=== PATIENT | male | born 1965 | race Hispanic/Latino ===

== ENCOUNTER 2021-03-23 11:22 | Emergency (ER) | payer MEDICARE ==
[2021-03-23 12:16] LABS: Hematocrit 44.6 % (35.5-45.6); Hemoglobin 14.8 gm/dl (11.8-15.2); Mean Corpuscular HGB Conc 33 % (32-34); Mean Corpuscular Volume 92 fl (84-94); Platelet Count 162 K/mm3 (140-440); Red Blood Count 4.87 M/mm3 (3.65-5.03); Red Cell Distribution Width 14.2 % (13.2-15.2)
--- NOTE | 2021-03-23 12:18 | Emergency Department Report ---
HPI - HPI HPI: Room 12 The patient is a 55-year-old male present with a chief complaint of suicidal ideation. Patient states he has history of depression and is constantly suicidal. Patient states he was recently released from [facility] but told them that he will return. The patient states he did not fill his psychiatric medication prescriptions because he says he would have been taking them all at once in an attempt to kill himself. Patient denies any attempts at harming himself since being released from [facility]. The patient also states he broke his left heel 10 weeks ago while in [place] but has not yet had a chance to follow-up with an orthopedic surgeon. <GIACOMO CANADA - Last Filed: 03/23/21 14:56> <ARIANNE ANGEL - Last Filed: 03/24/21 08:40> - General Chief Complaint: Psych Time Seen by Provider: 03/23/21 12:02 ED Past Medical Hx - Past Medical History Hx Psychiatric Treatment: Yes (Depression) - Surgical History Additional Surgical History: Bilateral lower extremity fractures, back surgery x2, right upper extremity surgery - Family History Family history: no significant - Social History Smoking Status: Current Every Day Smoker (Vape) Substance Use Type: Alcohol (Rarely), Methamphetamines (No IVDA) <GIACOMO CANADA - Last Filed: 03/23/21 14:56> ED Review of Systems ROS: Stated complaint: HEEL /SUICIDAL Other details as noted in HPI Constitutional: no symptoms reported Eyes: denies: eye pain ENT: denies: throat pain Respiratory: no symptoms reported Cardiovascular: denies: chest pain Endocrine: no symptoms reported Gastrointestinal: denies: abdominal pain Genitourinary: denies: dysuria Musculoskeletal: denies: back pain Neurological: denies: headache Psychiatric: depression, suicidal thoughts <GIACOMO CANADA - Last Filed: 03/23/21 14:56> ROS: Stated complaint: HEEL /SUICIDAL Other details as noted in HPI <ARIANNE ANGEL - Last Filed: 03/24/21 08:40> Physical Exam - Physical Exam Vital Signs: Vital Signs 03/23/21 11:28 Temperature 98.8 F Pulse Rate 91 H Respiratory 16 Rate Blood Pressure 135/88 [Right] O2 Sat by Pulse 99 Oximetry Physical Exam: GENERAL: The patient is well-developed well-nourished male sitting in chair not appearing to be in acute distress. [] HEENT: Normocephalic. Atraumatic. Extraocular motions are intact. Patient has moist mucous membranes. NECK: Supple. Trachea midline CHEST/LUNGS: Clear to auscultation. There is no respiratory distress noted. HEART/CARDIOVASCULAR: Regular. There is no tachycardia. There is no gallop rub or murmur. ABDOMEN: Abdomen is soft, nontender. Patient has normal bowel sounds. There is no abdominal distention. SKIN: There is no rash. There is no edema. There is no diaphoresis. NEURO: The patient is awake, alert, and oriented. The patient is cooperative. The patient has no focal neurologic deficits. The patient has normal speech MUSCULOSKELETAL: There is no evidence of acute injury. <GIACOMO CANADA - Last Filed: 03/23/21 14:56> - Physical Exam Vital Signs: Vital Signs 03/23/21 03/23/21 03/23/21 11:28 12:30 15:34 Temperature 98.8 F 98.4 F Pulse Rate 91 H 86 Respiratory 16 18 Rate Blood Pressure 135/88 135/79 [Right] O2 Sat by Pulse 99 96 Oximetry 03/23/21 03/23/21 03/24/21 19:31 20:09 05:59 Temperature 98.1 F 97.6 F Pulse Rate 76 77 Respiratory 18 18 16 Rate Blood Pressure 108/60 96/55 [Right] O2 Sat by Pulse 97 99 98 Oximetry 03/24/21 07:55 Temperature 98.3 F Pulse Rate 88 Respiratory 16 Rate Blood Pressure 110/67 [Right] O2 Sat by Pulse 99 Oximetry <ARIANNE ANGEL - Last Filed: 03/24/21 08:40> ED Course Vital Signs 03/23/21 11:28 Temperature 98.8 F Pulse Rate 91 H Respiratory 16 Rate Blood Pressure 135/88 [Right] O2 Sat by Pulse 99 Oximetry <GIACOMO CANADA - Last Filed: 03/23/21 14:56> Vital Signs 03/23/21 03/23/21 03/23/21 11:28 12:30 15:34 Temperature 98.8 F 98.4 F Pulse Rate 91 H 86 Respiratory 16 18 Rate Blood Pressure 135/88 135/79 [Right] O2 Sat by Pulse 99 96 Oximetry 0803/23/21 03/24/21 19:31 20:09 05:59 Temperature 98.1 F 97.6 F Pulse Rate 76 77 Respiratory 18 18 16 Rate Blood Pressure 108/60 96/55 [Right] O2 Sat by Pulse 97 99 98 Oximetry 03/24/21 07:55 Temperature 98.3 F Pulse Rate 88 Respiratory 16 Rate Blood Pressure 110/67 [Right] O2 Sat by Pulse 99 Oximetry - Reevaluation(s) Reevaluation #1: 03/24/21 08:39 Patient is medically cleared for psychiatric placement. Patient has been accepted at [facility]. Patient will be transferred for further management of mental health crisis. <ARIANNE ANGEL - Last Filed: 03/24/21 08:40> ED Medical Decision Making - Lab Data Result diagrams: 03/23/21 11:55 03/23/21 11:55 - Radiology Data Radiology results: report reviewed (Left foot x-ray), image reviewed (Left foot x-ray) interpreted by me: Left foot x-ray-no foreign body, no dislocation. [facility] [address] [place] [address] XRay Report Signed Patient: JOSE A SOTO MR#: [id number] 9 : 1965 Acct:[id number] Age/Sex: 55 / M ADM Date: 03/23/21 Loc: ED Attending Dr: Ordering Physician: GIACOMO CANADA MD Date of Service: 03/23/21 Procedure(s): XR foot 3+V LT Accession Number(s): [id number] cc: GIACOMO CANADA MD Fluoro Time In Minutes: LEFT FOOT 3 VIEWS INDICATION: Reported "heel" fracture 10 wks ago. COMPARISON: No relevant prior imaging study available. FINDINGS: There is a subacute, mildly comminuted intra-articular calcaneus fracture. CT would be useful to better characterize this. There appears to be interval healing. No additional fractures are seen. No significant degenerative changes. IMPRESSION: 1. Calcaneal fracture. CT would be useful to better characterize this. Signer Name: Fabian Blair MD Signed: 03/23/2021 12:54 PM Workstation Name: [id number] Transcribed By: KWADWO Dictated By: Fabian Blair MD Electronically Authenticated By: Fabian Blair MD Signed Date/Time: 03/23/21 1254 DD/ 1253 TD/TT: Print Cancel - Differential Diagnosis Suicidal ideation, depression <GIACOMO CANADA - Last Filed: 03/23/21 14:56> - Lab Data Result diagrams: 03/23/21 11:55 03/23/21 11:55 Lab Results 03/23/21 03/23/21 03/23/21 Range/Units 11:33 11:55 11:55 WBC (4.5-11.0) K/mm3 RBC (3.65-5.03) M/mm3 Hgb (11.8-15.2) gm/dl Hct (35.5-45.6) % MCV (84-94) fl MCH (28-32) pg MCHC (32-34) % RDW (13.2-15.2) % Plt Count (140-440) K/mm3 Add Manual Diff Total Counted Seg Neuts % (Manual) (40.0-70.0) % Lymphocytes % (Manual) (13.4-35.0) % Monocytes % (Manual) (0.0-7.3) % Nucleated RBC % Seg Neutrophils # Man (1.8-7.7) K/mm3 Band Neutrophils # K/mm3 Lymphocytes # (Manual) (1.2-5.4) K/mm3 Abs React Lymphs (Man) K/mm3 Monocytes # (Manual) (0.0-0.8) K/mm3 Eosinophils # (Manual) (0.0-0.4) K/mm3 Basophils # (Manual) (0.0-0.1) K/mm3 Metamyelocytes # K/mm3 Myelocytes # K/mm3 Promyelocytes # K/mm3 Blast Cells # K/mm3 WBC Morphology Hypersegmented Neuts Hyposegmented Neuts Hypogranular Neuts Smudge Cells Toxic Granulation Toxic Vacuolation Dohle Bodies Pelger-Huet Anomaly Damián Rods Platelet Estimate Clumped Platelets Plt Clumps, EDTA Large Platelets Giant Platelets Platelet Satelliting Plt Morphology Comment RBC Morphology Dimorphic RBCs Polychromasia Hypochromasia Poikilocytosis Anisocytosis Microcytosis Macrocytosis Spherocytes Pappenheimer Bodies Sickle Cells Target Cells Tear Drop Cells Ovalocytes Helmet Cells Ru[place] Bodies Surry Rings True Cells Bite Cells Crenated Cell Elliptocytes Acanthocytes (Spur) Rouleaux Hemoglobin C Crystals Schistocytes Malaria parasites Car Bodies Hem Pathologist Commnt Sodium (137-145) mmol/L Potassium (3.6-5.0) mmol/L Chloride (98-107) mmol/L Carbon Dioxide (22-30) mmol/L Anion Gap mmol/L BUN (9-20) mg/dL Creatinine (0.8-1.3) mg/dL Estimated GFR ml/min BUN/Creatinine Ratio % Glucose (75-100) mg/dL Calcium (8.4-10.2) mg/dL Urine Color (Yellow) Urine Turbidity (Clear) Urine pH (5.0-7.0) Ur Specific [place] (1.003-1.030) Urine Protein (Negative) mg/dL Urine Glucose (UA) (Negative) mg/dL Urine Ketones (Negative) mg/dL Urine Blood (Negative) Urine Nitrite (Negative) Urine Bilirubin (Negative) Urine Urobilinogen (<2.0) mg/dL Ur Leukocyte Esterase (Negative) Urine WBC (Auto) (0.0-6.0) /HPF Urine RBC (Auto) (0.0-6.0) /HPF U Epithel Cells (Auto) (0-13.0) /HPF Urine Mucus /HPF Salicylates < 0.3 L (2.8-20.0) mg/dL Urine Opiates Screen Negative Urine Methadone Screen Negative Acetaminophen 5.0 L (10.0-30.0) ug/mL Ur Barbiturates Screen Negative Ur Phencyclidine Scrn Negative Ur Amphetamines Screen Negative U Benzodiazepines Scrn Negative Urine Cocaine Screen Negative U Marijuana (THC) Screen Negative Drugs of Abuse Note Disclamer Plasma/Serum Alcohol (0-0.07) % 03/23/21 03/23/21 03/23/21 Range/Units 11:55 11:55 11:55 WBC 7.8 (4.5-11.0) K/mm3 RBC 4.87 (3.65-5.03) M/mm3 Hgb 14.8 (11.8-15.2) gm/dl Hct 44.6 (35.5-45.6) % MCV 92 (84-94) fl MCH 31 (28-32) pg MCHC 33 (32-34) % RDW 14.2 (13.2-15.2) % Plt Count 162 (140-440) K/mm3 Add Manual Diff Complete Total Counted 100 Seg Neuts % (Manual) 64.0 (40.0-70.0) % Lymphocytes % (Manual) 23.0 (13.4-35.0) % Monocytes % (Manual) 13.0 H (0.0-7.3) % Nucleated RBC % Not Reportable Seg Neutrophils # Man 5.0 (1.8-7.7) K/mm3 Band Neutrophils # 0.0 K/mm3 Lymphocytes # (Manual) 1.8 (1.2-5.4) K/mm3 Abs React Lymphs (Man) 0.0 K/mm3 Monocytes # (Manual) 1.0 H (0.0-0.8) K/mm3 Eosinophils # (Manual) 0.0 (0.0-0.4) K/mm3 Basophils # (Manual) 0.0 (0.0-0.1) K/mm3 Metamyelocytes # 0.0 K/mm3 Myelocytes # 0.0 K/mm3 Promyelocytes # 0.0 K/mm3 Blast Cells # 0.0 K/mm3 WBC Morphology Not Reportable Hypersegmented Neuts Not Reportable Hyposegmented Neuts Not Reportable Hypogranular Neuts Not Reportable Smudge Cells Not Reportable Toxic Granulation Not Reportable Toxic Vacuolation Not Reportable Dohle Bodies Not Reportable Pelger-Huet Anomaly Not Reportable Damián Rods Not Reportable Platelet Estimate Not Reportable Clumped Platelets Not Reportable Plt Clumps, EDTA Not Reportable Large Platelets Not Reportable Giant Platelets Not Reportable Platelet Satelliting Not Reportable Plt Morphology Comment Not Reportable RBC Morphology Normal Dimorphic RBCs Not Reportable Polychromasia Not Reportable Hypochromasia Not Reportable Poikilocytosis Not Reportable Anisocytosis Not Reportable Microcytosis Not Reportable Macrocytosis Not Reportable Spherocytes Not Reportable Pappenheimer Bodies Not Reportable Sickle Cells Not Reportable Target Cells Not Reportable Tear Drop Cells Not Reportable Ovalocytes Not Reportable Helmet Cells Not Reportable Ru[place] Bodies Not Reportable Surry Rings Not Reportable Grants Cells Not Reportable Bite Cells Not Reportable Crenated Cell Not Reportable Elliptocytes Not Reportable Acanthocytes (Spur) Not Reportable Rouleaux Not Reportable Hemoglobin C Crystals Not Reportable Schistocytes Not Reportable Malaria parasites Not Reportable Car Bodies Not Reportable Hem Pathologist Commnt No Sodium 142 (137-145) mmol/L Potassium 4.3 (3.6-5.0) mmol/L Chloride 104.1 (98-107) mmol/L Carbon Dioxide 28 (22-30) mmol/L Anion Gap 14 mmol/L BUN 19 (9-20) mg/dL Creatinine 0.9 (0.8-1.3) mg/dL Estimated GFR > 60 ml/min BUN/Creatinine Ratio 21 % Glucose 87 (75-100) mg/dL Calcium 9.6 (8.4-10.2) mg/dL Urine Color (Yellow) Urine Turbidity (Clear) Urine pH (5.0-7.0) Ur Specific [place] (1.003-1.030) Urine Protein (Negative) mg/dL Urine Glucose (UA) (Negative) mg/dL Urine Ketones (Negative) mg/dL Urine Blood (Negative) Urine Nitrite (Negative) Urine Bilirubin (Negative) Urine Urobilinogen (<2.0) mg/dL Ur Leukocyte Esterase (Negative) Urine WBC (Auto) (0.0-6.0) /HPF Urine RBC (Auto) (0.0-6.0) /HPF U Epithel Cells (Auto) (0-13.0) /HPF Urine Mucus /HPF Salicylates (2.8-20.0) mg/dL Urine Opiates Screen Urine Methadone Screen Acetaminophen (10.0-30.0) ug/mL Ur Barbiturates Screen Ur Phencyclidine Scrn Ur Amphetamines Screen U Benzodiazepines Scrn Urine Cocaine Screen U Marijuana (THC) Screen Drugs of Abuse Note Plasma/Serum Alcohol < 0.01 (0-0.07) % 03/24/21 Range/Units Unknown WBC (4.5-11.0) K/mm3 RBC (3.65-5.03) M/mm3 Hgb (11.8-15.2) gm/dl Hct (35.5-45.6) % MCV (84-94) fl MCH (28-32) pg MCHC (32-34) % RDW (13.2-15.2) % Plt Count (140-440) K/mm3 Add Manual Diff Total Counted Seg Neuts % (Manual) (40.0-70.0) % Lymphocytes % (Manual) (13.4-35.0) % Monocytes % (Manual) (0.0-7.3) % Nucleated RBC % Seg Neutrophils # Man (1.8-7.7) K/mm3 Band Neutrophils # K/mm3 Lymphocytes # (Manual) (1.2-5.4) K/mm3 Abs React Lymphs (Man) K/mm3 Monocytes # (Manual) (0.0-0.8) K/mm3 Eosinophils # (Manual) (0.0-0.4) K/mm3 Basophils # (Manual) (0.0-0.1) K/mm3 Metamyelocytes # K/mm3 Myelocytes # K/mm3 Promyelocytes # K/mm3 Blast Cells # K/mm3 WBC Morphology Hypersegmented Neuts Hyposegmented Neuts Hypogranular Neuts Smudge Cells Toxic Granulation Toxic Vacuolation Dohle Bodies Pelger-Huet Anomaly Damián Rods Platelet Estimate Clumped Platelets Plt Clumps, EDTA Large Platelets Giant Platelets Platelet Satelliting Plt Morphology Comment RBC Morphology Dimorphic RBCs Polychromasia Hypochromasia Poikilocytosis Anisocytosis Microcytosis Macrocytosis Spherocytes Pappenheimer Bodies Sickle Cells Target Cells Tear Drop Cells Ovalocytes Helmet Cells Ruiz-[place] Bodies Surry Rings Grants Cells Bite Cells Crenated Cell Elliptocytes Acanthocytes (Spur) Rouleaux Hemoglobin C Crystals Schistocytes Malaria parasites Acr Bodies Hem Pathologist Commnt Sodium (137-145) mmol/L Potassium (3.6-5.0) mmol/L Chloride (98-107) mmol/L Carbon Dioxide (22-30) mmol/L Anion Gap mmol/L BUN (9-20) mg/dL Creatinine (0.8-1.3) mg/dL Estimated GFR ml/min BUN/Creatinine Ratio % Glucose (75-100) mg/dL Calcium (8.4-10.2) mg/dL Urine Color Yellow (Yellow) Urine Turbidity Clear (Clear) Urine pH 5.0 (5.0-7.0) Ur Specific [place] 1.017 (1.003-1.030) Urine Protein <15 mg/dl (Negative) mg/dL Urine Glucose (UA) Neg (Negative) mg/dL Urine Ketones Neg (Negative) mg/dL Urine Blood Neg (Negative) Urine Nitrite Neg (Negative) Urine Bilirubin Neg (Negative) Urine Urobilinogen < 2.0 (<2.0) mg/dL Ur Leukocyte Esterase Neg (Negative) Urine WBC (Auto) < 1.0 (0.0-6.0) /HPF Urine RBC (Auto) < 1.0 (0.0-6.0) /HPF U Epithel Cells (Auto) 1.0 (0-13.0) /HPF Urine Mucus Few /HPF Salicylates (2.8-20.0) mg/dL Urine Opiates Screen Urine Methadone Screen Acetaminophen (10.0-30.0) ug/mL Ur Barbiturates Screen Ur Phencyclidine Scrn Ur Amphetamines Screen U Benzodiazepines Scrn Urine Cocaine Screen U Marijuana (THC) Screen Drugs of Abuse Note Plasma/Serum Alcohol (0-0.07) % <ARIANNE ANGEL - Last Filed: 03/24/21 08:40> Critical care attestation.: If time is entered above; I have spent that time in minutes in the direct care of this critically ill patient, excluding procedure time. <GIACOMO CANADA - Last Filed: 03/23/21 14:56> Critical care attestation.: If time is entered above; I have spent that time in minutes in the direct care of this critically ill patient, excluding procedure time. <ARIANNE ANGEL - Last Filed: 03/24/21 08:40> ED Disposition <GIACOMO CANADA - Last Filed: 03/23/21 14:56> Is pt being admited?: No Does the pt Need Aspirin: No Time of Disposition: 08:40 <ARIANNE ANGEL - Last Filed: 03/24/21 08:40> Clinical Impression: Suicidal ideation [facility] Condition: Stable
[2021-03-23 12:34] LABS: BUN/Creatinine Ratio 21; Blood Urea Nitrogen 19 mg/dL (9-20); Calcium 9.6 mg/dL (8.4-10.2); Hemolysis Index 8
--- NOTE | 2021-03-23 12:59 | XRay Report ---
LEFT FOOT 3 VIEWS INDICATION: Reported "heel" fracture 10 wks ago. COMPARISON: No relevant prior imaging study available. FINDINGS: There is a subacute, mildly comminuted intra-articular calcaneus fracture. CT would be useful to bett er characterize this. There appears to be interval healing. No additional fractures are seen. No sign ificant degenerative changes. IMPRESSION: 1. Calcaneal fracture. CT would be useful to better characterize this. Signer Name: Fabian Blair MD Signed: 03/23/2021 12:54 PM Workstation Name: [id number]
[2021-03-23 13:37] LABS: Amphetamine Screen,Urine Negative; Benzodiazepines Screen,Urine Negative; Cannabinoid Screen,Urine Negative; Cocaine Screen,Urine Negative; Methadone Screen,Urine Negative; Opiate Screen,Urine Negative
[2021-03-23 16:09] LABS: RBC Morphology Normal; Total Cells Counted 100
[2021-03-23] MEDS ORDERED: buPROPion XL 150 MG TAB PO ONE (23:34)
[2021-03-23] MEDS ORDERED: METOCLOPRAMIDE 10 MG/2 ML INJ IM ONE (23:35)
[2021-03-23] MEDS ORDERED: QUEtiapine 100 MG TAB PO ONE (23:35)
[2021-03-23] MEDS ORDERED: hydrOXYzine PAMOATE 25 MG CAP PO ONE (23:36)
[2021-03-23] MEDS ORDERED: MIRTAZAPINE 15 MG TAB PO ONE (23:37)
[2021-03-24 07:41] LABS: Bilirubin,Urine NEG (Negative); Blood,Urine NEG (Negative); Color,Urine Yellow (Yellow); Mucus,Urine FEW /HPF; Protein,Urine <15 mg/dL mg/dL (Negative); RBC,Urine < 1.0 /HPF (0.0-6.0); Urobilinogen,Urine < 2.0 mg/dL (<2.0)
[2021-03-24 07:48] LABS: WBC,Urine < 1.0 /HPF (0.0-6.0)
--- NOTE | 2021-03-24 11:02 | Consultation ---
History of Present Illness - Reason for Consult Consult date: 03/24/21 Reason for consult: Mental health eval - History of Present Psychiatric Illness Per ED Note: The patient is a 55-year-old male present with a chief complaint of suicidal ideation. Patient states he has history of depression and is constantly suicidal. Patient states he was recently released from [facility] but told them that he will return. The patient states he did not fill his psychiatric medication prescriptions because he says he would have been taking them all at once in an attempt to kill himself. Patient denies any attempts at harming himself since being released from [facility]. The patient also states he broke his left heel 10 weeks ago while in [place] but has not yet had a chance to follow-up with an orthopedic surgeon. Shane Harris is a 55 year old male with a history of Depression, multiple suicidal attempts and multiple inpatient psychiatric admissions who presents to the ED with suicidal ideation. In my interview with the patient, he admits being very depressed. The patient reports that he was recently discharged from [facility] about two days ago and was referred to [facility] however, he reports constantly having suicidal thoughts with a plan to overdose on pills " I don't want to be alive." He denies any homicidal thoughts and denies hallucinations. PAST PSYCHIATRIC HISTORY: Diagnoses: Depression Suicide attempts or Self-harm behavior: Yes X10 Prior psychiatric hospitalizations: Multiple Substance Abuse history: Methamphetamines Previous psychiatric medications tried: Abilify, Zoloft, and Wellbutrin Outpatient treatment: denies PAST MEDICAL HISTORY: None reported or document Family Psychiatric History: None reported or documented SOCIAL HISTORY Marital Status: Single Living Arrangements: Homeless Employment Status: Unemployed Access to guns/weapons: denies Education: GED History of Abuse:Denies Legal History: Denies REVIEW OF SYSTEMS Constitutional: Negative for weight loss ENT: Negative for stridor Respiratory: Negative for cough or hemoptysis All other systems reviewed and are negative MENTAL STATUS EXAMINATION General Appearance and Behavior: Age appropriate, good hygiene, wearing appropriate clothes, calm and cooperative polite with questioning. Cooperation: engaged Psychomotor Behavior: Psychomotor normal Mood:Depressed Affect and affective range: congruent with stated mood Thought Process: goal directed Thought Content: Suicidal Speech: Normal volume, Regular rate and rhythm, Suicidal Ideation: Yes Homicidal Ideation: Denies Hallucinations: Denies Delusions: None elicited Impulse Control: Unimpaired Insight and Judgment: Limited Memory: Abnormal Attention: attentive Orientation: alert and oriented Assessment and Plan (1) Major depressive disorder, recurrent,severe-F33.2 Current Visit: Yes Status: Acute Treatment Plan Continue 1013 Please continue home medications. The patient to comply with previously prescribed medications Risks, benefits and alternatives of medications discussed with the patient, questions answered and consent obtained from patient. PSYCHOTHERAPY: Supportive psychotherapy provided MEDICAL: Per primary team DELIRIUM PRECAUTIONS: Please re-orient patient frequently, keep lights on during the day, and minimize benzodiazepines and opiates as these medications could worsen patient's confusion. SECOND CUTTER: Defer to primary DISPOSITION: Recommend acute inpatient psychiatric hospitalization at this time. FOLLOW-UP: Will follow Thank you for the consult. Please contact with any questions and/or concerns. Medications and Allergies Allergies Allergy/AdvReac Type Severity Reaction Status Date / Time No Known Allergies Allergy Unverified 03/23/21 11:33 Home Medications Medication Instructions Recorded Confirmed Last Taken Type QUEtiapine [SEROquel] 100 mg PO QHS 03/23/21 03/23/21 Unknown History buPROPion XL [Wellbutrin XL] 150 mg PO DAILY 03/23/21 03/23/21 Unknown History Mental Status Exam - Vital signs Last Vital Signs Temp 98.3 F 03/24/21 07:55 Pulse 88 03/24/21 07:55 Resp 16 03/24/21 07:55 BP 110/67 03/24/21 07:55 Pulse Ox 99 03/24/21 07:55 Results Result Diagrams: 03/23/21 11:55 03/23/21 11:55 Abnormal lab results 03/23/21 03/23/21 03/23/21 Range/Units 11:55 11:55 11:55 Monocytes % (Manual) 13.0 H (0.0-7.3) % Monocytes # (Manual) 1.0 H (0.0-0.8) K/mm3 Salicylates < 0.3 L (2.8-20.0) mg/dL Acetaminophen 5.0 L (10.0-30.0) ug/mL All other labs normal.
[2021-03-24] MEDS: buPROPion XL 150 MG TAB PO SCH (12:40)
[2021-03-24] MEDS ORDERED: QUEtiapine 100 MG TAB PO SCH (22:00)
[2021-03-25 08:16] VITALS: BP 115/75
--- NOTE | 2021-03-25 09:25 | Progress Note ---
Subjective - Reason for Consult Consult date: 03/25/21 Reason for consult: sucidal ideation - Chief Complaint Chief complaint: The patient was seen resting quietly, he reports feeling better. He reports sleep and appetite as good. The patient denies any current suicidal/homicidal thoughts and denies hallucinations. REVIEW OF SYSTEMS Constitutional: Negative for weight loss ENT: Negative for stridor Respiratory: Negative for cough or hemoptysis All other systems reviewed and are negative MENTAL STATUS EXAMINATION General Appearance and Behavior: Age appropriate, good hygiene, wearing appropriate clothes, calm and cooperative polite with questioning. Cooperation: engaged Psychomotor Behavior: Psychomotor normal Mood:" good" Affect and affective range: congruent with stated mood Thought Process: goal directed Thought Content: Not Suicidal Speech: Normal volume, Regular rate and rhythm, Suicidal Ideation: Denies Homicidal Ideation: Denies Hallucinations: Denies Delusions: None elicited Impulse Control: Unimpaired Insight and Judgment: Limited Memory: Abnormal Attention: attentive Orientation: alert and oriented Assessment and Plan (1) Major depressive disorder, recurrent,severe-F33.2 Current Visit: Yes Status: Acute Treatment Plan DC 1013 Please continue home medications. The patient to comply with previously prescribed medications Risks, benefits and alternatives of medications discussed with the patient, questions answered and consent obtained from patient. PSYCHOTHERAPY: Supportive psychotherapy provided MEDICAL: Per primary team DELIRIUM PRECAUTIONS: Please re-orient patient frequently, keep lights on during the day, and minimize benzodiazepines and opiates as these medications could worsen patient's confusion. 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 The patient understands that if suicidal/homicidal ideation or any endangering thoughts/behaviors arise, he should seek emergent assistance including but not limited to crisis hotline and emergency room. Follow up with outpatient psychiatrist with 7- 14 days of discharge. FOLLOW-UP: Will sign off Please contact with any questions and/or concerns. Mental Status Exam - Vital signs Last Vital Signs Temp 98.6 F 03/25/21 08:15 Pulse 88 03/25/21 08:15 Resp 20 03/25/21 08:15 BP 115/75 03/25/21 08:15 Pulse Ox 99 03/25/21 08:16
[2021-03-25] MEDS: buPROPion XL 150 MG TAB PO SCH (09:37)
--- NOTE | 2021-03-25 11:18 | Emergency Department Report ---
Blank Doc - Documentation Documentation: S: 55-year-old male presenting with suicidal ideation after recent discharge f rom O: No complaints. Vital signs reviewed Vital Signs 03/23/21 03/23/21 03/23/21 11:28 12:30 15:34 Temperature 98.8 F 98.4 F Pulse Rate 91 H 86 Respiratory 16 18 Rate Blood Pressure 135/88 135/79 [Right] O2 Sat by Pulse 99 96 Oximetry 03/23/21 03/23/21 03/24/21 19:31 20:09 05:59 Temperature 98.1 F 97.6 F Pulse Rate 76 77 Respiratory 18 18 16 Rate Blood Pressure 108/60 96/55 [Right] O2 Sat by Pulse 97 99 98 Oximetry 03/24/21 03/24/21 03/25/21 07:55 19:00 08:15 Temperature 98.3 F 98.3 F 98.6 F Pulse Rate 88 82 88 Respiratory 16 18 20 Rate Blood Pressure 110/67 122/78 115/75 [Right] O2 Sat by Pulse 99 100 99 Oximetry 03/25/21 08:16 Temperature Pulse Rate Respiratory Rate Blood Pressure [Right] O2 Sat by Pulse 99 Oximetry Assessment: Covid positive patient, suicidal received psychiatric assessment. Denies suicidal or homicidal ideation today. Recommendation for DC of 1013. Patient also Covid positive however no signs of hypoxia or respiratory symptoms Plan: Discharge as per psychiatry recommendation and provide Covid discharge instructions as well.
== END 2021-03-25 11:37 | disposition home or self-care (01) ==
LOC: ED 11:22
DX: U07.1 COVID-19 (principal); R45.851 Suicidal ideations; F32.9 Major depressive disorder, single episode, unspecified; Z98.890 Other specified postprocedural states; F17.200 Nicotine dependence, unspecified, uncomplicated
CPT/HCPCS: 36415; 73630; 80048; 80307; 81001; 85007; 85025; 99284; Q0177; U0003; 80320; 99285; G0480